=== PATIENT | male | born 1965 | race Caucasian/White ===

== ENCOUNTER 2022-11-08 06:19 | Outpatient (CLI) | payer OTHER ==
[~2022-11-08] VITALS: Ht 180.3 cm; Wt 90.7 kg
[~2022-11-08 06:19] MED LIST: CITA40TA19 PO; OMEP20CA6; amoxicillin
[2022-11-09] MEDS ORDERED: OMEP20TA33 PO (11:26)
[2022-11-09] MEDS ORDERED: AMLO-251 PO (11:26)
[2022-11-09] MEDS ORDERED: LOSA100T57 PO (11:26)
[2022-11-09] MEDS ORDERED: ATOR20TA66 PO (11:26)
== END 2022-11-09 11:29 ==
LOC: PREOP 06:19
PROVIDERS: ATTEND Surgery
DX: Z01.818 Encounter for other preprocedural examination (principal); Z12.11 Encounter for screening for malignant neoplasm of colon

== ENCOUNTER 2022-11-21 08:22 | Day surgery (SDC) | payer OTHER ==
[~2022-11-21] VITALS: Ht 180.3 cm; Wt 90.7 kg
[~2022-11-21 08:22] MED LIST changes: +AMLO-251 PO; +ATOR20TA66 PO; +LOSA100T57 PO; +OMEP20TA33 PO
[2022-11-21] MEDS ORDERED: LACTATED RINGERS 1,000 ML IV STA (08:28)
--- NOTE | 2022-11-21 08:39 | Progress Note-Pre Operative ---
Pre-Operative Progress Note Date of Available H&P: Nov 01, 2022 Date H&P Reviewed: Nov 21, 2022 Time H&P Reviewed: 08:38 History & Physical: H&P Reviewed, Patient Examed, No changes noted Pre-Operative Diagnosis: screening colonoscopy LENNY WAGGONER DO Nov 21, 2022 08:39
[2022-11-21 08:52] VITALS: BP 151/95
[2022-11-21] MEDS ORDERED: PROPOFOL INJECTION 50 ML IV ONE (09:10)
--- NOTE | 2022-11-21 09:34 | Discharge Inst-Simple/Standard ---
Discharge Inst-Standard Patient Instructions/Follow Up Plan of Care/Instructions/FU: 2 weeks Harry Activity as Tolerated: Yes Discharge Diet: Regular Diet (high fiber diet) LENNY WAGGONER DO Nov 21, 2022 09:34
[2022-11-21 09:37] VITALS: BP 130/74
--- NOTE | 2022-11-21 09:37 | Progress Note-Post Operative ---
Post-Operative Progess Note Surgeon (s)/Welding Machine Operator Helper Arc (s) Surgeon LENNY WAGGONER DO Welding Machine Operator Helper Arc: na Pre-Operative Diagnosis screening colonoscopy Post-Operative Diagnosis Submucosal Lipoma Diverticulosis Procedure & Operative Findings Date of Procedure 11/21/22 Procedure Performed/Findings Colonoscopy with cold biopsy x 1 Anesthesia Type per supervisor wet room Estimated Blood Loss Estimated blood loss (mL): none Specimens/Packing Specimens Removed Cecum biopsy (suspected submucosal lipoma) x 1 LENNY WAGGONER DO Nov 21, 2022 09:37
[2022-11-21 09:42] VITALS: BP 138/74
[2022-11-21 09:50] VITALS: BP 125/71
[2022-11-21 10:10] VITALS: BP 125/71
--- NOTE | 2022-11-21 12:15 | Anesthesia-General Post-Op ---
MAC Patient Condition Mental Status/LOC: Same as Preop Cardiovascular: Satisfactory Nausea/Vomiting: Absent Respiratory: Satisfactory Pain: Controlled Complications: Absent Post Op Complications Complications None Follow Up Care/Instructions Patient Instructions None needed. Anesthesiology Discharge Order Discharge Order Patient is doing well, no complaints, stable vital signs, no apparent adverse anesthesia problems. No complications reported per nursing. MILIND STUART CRNA Nov 21, 2022 12:15
--- NOTE | 2022-11-21 14:13 | OPERATIVE REPORT ---
DATE OF SERVICE: 11/21/2022 PREOPERATIVE DIAGNOSIS: Screening colonoscopy. POSTOPERATIVE DIAGNOSES: Submucosal lipoma cecum, diverticulosis. PROCEDURE: Colonoscopy with cold biopsy. SURGEON: Lenny Mcdonald DO. ANESTHESIA: Per STAFF INTERNIST OFFICE BASED ONLY. ESTIMATED BLOOD LOSS: None. COMPLICATIONS: None. INDICATIONS: The patient is a 57-year-old male, needing screening colonoscopy. He understands risks and benefits of procedure and wished to proceed. Consent was signed in chart. DESCRIPTION OF PROCEDURE: The patient was taken to endoscopy suite, placed in left lateral recumbent position. Timeout was performed. Digital rectal exam performed. No palpable polyps, masses or ulcerations. Scope was inserted in the rectum, advanced all the way to the cecum with minimal difficulty. Prep was adequate. Scope was slowly retracted back to the cecum. An appearance of submucosal lipoma present, cold biopsy of this area was obtained. Scope was then slowly retracted back. No polyps, masses or ulcerations within the remainder of the cecum, ascending, transverse, descending and sigmoid colon. Diverticulosis present in the sigmoid colon, very minimal. Once in the rectum, scope was retroflexed noting no other pathology. Scope was returned to its normal position, slowly withdrawn until completely removed. The patient tolerated the procedure well, no complications, taken to recovery in stable condition. RECOMMENDATIONS: The patient will repeat colonoscopy 10 years unless the submucosal lipoma is actually other pathology, which will then need repeat colonoscopy at that time, otherwise 10 years. If she has any issues before that, be seen at that time. If has family history of colon cancer, repeat colonoscopy will need to be 5 years. With diverticulosis, we will recommend high fiber diet. Job ID: [id number] DocumentID: [id number] Dictated Date: 11/21/2022 09:35:35 Automatic Edger Date: 11/21/2022 14:11:00 Dictated By: LENNY MCDONALD DO
== END 2022-11-21 10:15 | disposition home or self-care (01) ==
LOC: ENDO 08:22
PROVIDERS: ATTEND Surgery
DX: Z12.11 Encounter for screening for malignant neoplasm of colon (principal); K57.30 Diverticulosis of large intestine without perforation or abscess without bleeding; D17.5 Benign lipomatous neoplasm of intra-abdominal organs